=== PATIENT | male | born 1995 | race Caucasian/White ===

== ENCOUNTER 2019-12-24 07:30 | Emergency (ER) | payer OTHER ==
[~2019-12-24] VITALS: Ht 193 cm; Wt 90.7 kg
[2019-12-24 07:39] VITALS: BP 144/90
[2019-12-24] MEDS ORDERED: IBUPROFEN 800 MG TABLET PO ONE (08:00)
[2019-12-24] MEDS ORDERED: IBUPROFEN 200 MG TABLET ONE (08:10)
== END 2019-12-24 09:06 | disposition home or self-care (01) ==
LOC: ED 09:00
DX: S46.911A Strain of unspecified muscle, fascia and tendon at shoulder and upper arm level, right arm, initial encounter (principal); S16.1XXA Strain of muscle, fascia and tendon at neck level, initial encounter; X58.XXXA Exposure to other specified factors, initial encounter; Y93.89 Activity, other specified; Y92.89 Other specified places as the place of occurrence of the external cause; Y99.8 Other external cause status
CPT/HCPCS: 71046; 99283

== ENCOUNTER 2019-12-25 09:03 | Emergency (ER) | payer OTHER ==
[~2019-12-25] VITALS: Ht 193 cm; Wt 90.9 kg
[2019-12-25 09:04] VITALS: BP 124/75
[2019-12-25] MEDS ORDERED: OXYcodone/APAP 10/325MG TABLET PO ONE (09:30)
[2019-12-25] MEDS ORDERED: KETOROLAC 30 MG/1 ML IM ONE (09:30)
[2019-12-25] MEDS ORDERED: KETOROLAC 60 MG/2 ML ONE (09:33)
[2019-12-25] MEDS ORDERED: OXYcodone/APAP 10/325MG TABLET ONE (09:33)
== END 2019-12-25 11:37 | disposition home or self-care (01) ==
LOC: ED 09:51
DX: S23.3XXA Sprain of ligaments of thoracic spine, initial encounter (principal); X58.XXXA Exposure to other specified factors, initial encounter; Y93.89 Activity, other specified; Y92.89 Other specified places as the place of occurrence of the external cause; Y99.8 Other external cause status
CPT/HCPCS: 72072; 96372; 99283; J1885